=== PATIENT | male | born 1995 | race African-American/Black ===

== ENCOUNTER 2016-10-02 16:07 | Emergency (ER) | payer SELFPAY ==
[2016-10-02 16:30] VITALS: BP 145/88
--- NOTE | 2016-10-02 16:31 | ER Document Report ---
ED Medical Screen (RME) - General Stated Complaint: VOMITING BLOOD,FEVER Mode of Arrival: Ambulatory Information source: Patient Notes: Patient presents to the emergency department with reports of vomiting applied and clumps for the past 3 days. He also reports fever and his body hurting ( "like a fat girl has been sitting on him" I have greeted and performed a rapid initial assessment of this patient. A comprehensive ED assessment and evaluation of the patient, analysis of test results and completion of the medical decision making process will be conducted by additional ED providers. TRAVEL OUTSIDE OF THE [place] IN LAST 30 DAYS: No - Related Data Allergies/Adverse Reactions: Sulfa (Sulfonamide Antibiotics) Allergy (Verified 11/10/11 15:56) Past Medical History Pulmonary Medical History: Reports: Hx Asthma Musculoskeltal Medical History: Reports Hx Musculoskeletal Trauma Skin Medical History: Reports Hx Eczema - Immunizations Immunizations up to date: Yes Hx Diphtheria, Pertussis, Tetanus Vaccination: Yes
[2016-10-02 17:03] LABS: ABSOLUTE MONOCYTES (AUTO) 0.6 10^3/uL (0.1-1.4); ABSOLUTE NEUT (AUTO) 2.9 10^3/uL (1.7-8.2); BASOPHILS % (AUTO) 0.6 % (0-2); EOSINOPHILS % (AUTO) 0.9 % (0-6); HEMATOCRIT 43.2 % (37.9-51.0); HEMOGLOBIN 14.2 g/dL (13.5-17.0); HGB HCT DIFFERENCE -0.6; LYMPHOCYTES % (AUTO) 22.3 % (13-45); MEAN CORPUSCULAR HEMOGLOBIN 31.2 pg (27.0-33.4); MEAN CORPUSCULAR VOLUME 95 fl (80-97); RED BLOOD COUNT 4.57 10^6/uL (4.35-5.55); RED CELL DISTRIBUTION WIDTH 11.7 % (11.5-14.0); SEGMENTED NEUTROPHILS % (AUTO) 63.2 % (42-78); WHITE BLOOD COUNT 4.6 10^3/uL (4.0-10.5)
[2016-10-02 17:22] LABS: APPEARANCE,URINE CLEAR; BILIRUBIN,URINE NEGATIVE (NEGATIVE); GLUCOSE, URINE NEGATIVE (NEGATIVE); KETONES,URINE NEGATIVE (NEGATIVE); LEUKOCYTE ESTERASE,URINE NEGATIVE (NEGATIVE); NITRITE,URINE NEGATIVE (NEGATIVE); PROTEIN,URINE 30 mg/dL (NEGATIVE); URINE SPECIFIC GRAVITY 1.027; UROBILINOGEN,URINE NEGATIVE mg/dL (<2.0)
[2016-10-02 17:25] LABS: ALANINE AMINOTRANSFERASE 26 U/L (21-72); ALBUMIN 4.2 g/dL (3.5-5.0); ALKALINE PHOSPHATASE 56 U/L (38-126); ANION GAP 13 (5-19); ASPARTATE AMINO TRANSFERASE 30 U/L (17-59); BILIRUBIN,DIRECT 0.3 mg/dL (0.0-0.4); BILIRUBIN,TOTAL 0.6 mg/dL (0.2-1.3); BLOOD UREA NITROGEN 13 mg/dL (7-20); CALCIUM 9.9 mg/dL (8.4-10.2); CARBON DIOXIDE 25 mmol/L (22-30); CHLORIDE 110 mmol/L (98-107); CREATININE RESULT 1.05 mg/dL (0.52-1.25); GLUCOSE 102 mg/dL (75-110); POTASSIUM 5.3 mmol/L (3.6-5.0); SODIUM 147.5 mmol/L (137-145)
== END 2016-10-02 20:20 | disposition left against medical advice (07) ==
LOC: ER 16:07
DX: R11.10 Vomiting, unspecified (principal); M79.1 Myalgia; J45.909 Unspecified asthma, uncomplicated; Z88.2 Allergy status to sulfonamides
CPT/HCPCS: 36415; 80053; 81001; 85025; 87804; 99281

== ENCOUNTER 2016-12-23 23:42 | Emergency (ER) | payer SELFPAY ==
--- NOTE | 2016-12-24 02:15 | ER Document Report ---
ED General - General Chief Complaint: R hand injury, R shoulder pain Stated Complaint: FALL/HAND INJURY Time Seen by Provider: 12/24/16 02:01 Notes: Patient is a 21-year-old male presents with complaint of pain of the right hand and shoulder. He is riding his long board and fell. He then worked and then came to the ER after working. He works as a server security administrator. He has no pain with movement of the shoulder hand they does have some road rash on his shoulder and hand. He says the pain is mainly just for the road rashes. No numbness or weakness or tingling into the hand. Pain. No elbow pain. No other complaints at this time. TRAVEL OUTSIDE OF THE [place] IN LAST 30 DAYS: No - Related Data Allergies/Adverse Reactions: Sulfa (Sulfonamide Antibiotics) Allergy (Verified 11/10/11 15:56) Past Medical History - Social History Smoking Status: Never Smoker Frequency of alcohol use: None Drug Abuse: None Family History: DM, Hypertension, Malignancy Pulmonary Medical History: Reports: Hx Asthma Renal/ Medical History: Denies: Hx Peritoneal Dialysis Musculoskeltal Medical History: Reports Hx Musculoskeletal Trauma Skin Medical History: Reports Hx Eczema - Immunizations Immunizations up to date: Yes Hx Diphtheria, Pertussis, Tetanus Vaccination: Yes Review of Systems - Review of Systems Notes: My Normal Review Basic REVIEW OF SYSTEMS: CONSTITUTIONAL : Denies fever, chills, or sweats. Denies recent illness. CARDIOVASCULAR: Denies chest pain. RESPIRATORY: Denies cough, cold, or chest congestion. Denies shortness of breath, difficulty breathing, or wheezing. GASTROINTESTINAL: Denies abdominal pain. Denies nausea, vomiting, or diarrhea. Denies constipation. Last BM: MUSCULOSKELETAL: Some pain in right hand and shoulder. SKIN: road rash on right Hand and shoulder. NEUROLOGICAL: Denies altered mental status or loss of consciousness. Denies headache. Denies weakness or paralysis or loss of use of either side. Denies problems with gait or speech. Denies sensory or motor loss. ALL OTHER SYSTEMS REVIEWED AND NEGATIVE. Physical Exam - Vital signs Vitals: Temp Pulse Resp BP Pulse Ox 97.5 F 72 16 129/74 H 99 12/24/16 00:15 12/24/16 00:15 12/24/16 00:15 12/24/16 00:15 12/24/16 00:15 - Notes Notes: General Appearance: Well nourished, alert, cooperative, no acute distress, no obvious discomfort. Well appearing. Vitals: reviewed, See vital signs table. Head: no swelling or tenderness to the head Eyes: PERRL, EOMI, Conjuctiva clear Extremities: strength 5/5 in all extremities, good pulses in all extremities, no reproducible tenderness to palpation of the right hand or wrist. Patient has very small amount tenderness to palpation only over the area of road rash. He denies any pain to the inside of his shoulder. He says the pain is only on the surface for the red rashes. He has full range of motion of the right shoulder without pain. Skin: Very small amount of road rash on the dorsum of the right hand as well as one spot of road rash on the right shoulder. Neuro: speech clear, oriented x 3, normal affect, responds appropriately to questions. - General General appearance: Appears well, Alert Course - Vital Signs Vital signs: Temp Pulse Resp BP Pulse Ox 97.5 F 66 16 116/68 100 12/24/16 00:15 12/24/16 03:39 12/24/16 03:39 12/24/16 03:39 12/24/16 03:39 - Transfer of Care Notes: 12/24/16 07:24 X-ray the patient has negative for fracture. He does have some road rash. I encouraged him to keep the wounds clean. If he has any redness or swelling to the area she is to return to the ER for reevaluation. Patient agrees with plan and will be discharged home. Dictation of this chart was performed using voice recognition software; therefore, there may be some unintended grammatical errors. Discharge - Discharge Clinical Impression: Abrasion Condition: Good Disposition: HOME, SELF-CARE Additional Instructions: Please return to the ER if you have redness or increasing swelling to your hand or shoulder as this may indicate an infection. Keep road rash clean with soap and water.
--- NOTE | 2016-12-24 02:16 | RADIOLOGY REPORT (SQ) ---
EXAM DESCRIPTION: HAND RIGHT 3 VIEWS COMPLETED DATE/TIME: 12/24/2016 2:07 am REASON FOR STUDY: pain s/p injury COMPARISON: None. 03/08/2009. EXAM PARAMETERS: NUMBER OF VIEWS: Three views. TECHNIQUE: AP, lateral and oblique radiographic images acquired of the right hand. LIMITATIONS: None. FINDINGS: MINERALIZATION: Normal. BONES: No acute fracture or dislocation. No worrisome bone lesions. Mild deformity of the right 5th metacarpus consistent with prior injury. JOINTS: No effusions. SOFT TISSUES: Known soft tissue laceration of the right 4th digit. No foreign body. OTHER: No other significant finding. IMPRESSION: No acute bone or joint defect. TECHNICAL DOCUMENTATION: JOB ID: [id number] [employer]- All Rights Reserved
[2016-12-24] MEDS ORDERED: DIPH/PERTUSS(ACELL)/TETANUS VAC/PF 0.5 ML SYR (>=10YO) IM ONE (03:27)
[2016-12-24 03:52] VITALS: BP 116/68
== END 2016-12-24 03:39 | disposition home or self-care (01) ==
LOC: ER 23:42
DX: S60.511A Abrasion of right hand, initial encounter (principal); S40.211A Abrasion of right shoulder, initial encounter; M79.641 Pain in right hand; M25.511 Pain in right shoulder; V00.131A Fall from skateboard, initial encounter; Y93.51 Activity, roller skating (inline) and skateboarding; J45.909 Unspecified asthma, uncomplicated; Z88.2 Allergy status to sulfonamides
CPT/HCPCS: 90471; 90715; 99283

== ENCOUNTER 2017-01-02 15:13 | Emergency (ER) | payer SELFPAY ==
[2017-01-02] MEDS ORDERED: PREDNISONE 20 MG TABLET PO ONE (16:10)
--- NOTE | 2017-01-02 16:14 | ER Document Report ---
HPI - HPI Patient complains to provider of: skin rash Onset: Other - 4 days Onset/Duration: Persistent Quality of pain: Burning Pain Level: 2 Context: Patient complains of pruritic skin rash to the right shoulder and behind his left ear for the past 4 days. Patient does state that he has been using a topical triple antibiotic cream to his shoulder after an abrasion. Patient states that he does have a sulfa allergy. Patient denies any other new foods, medications or detergents. Without any difficulty breathing, chest pain or fever. Associated Symptoms: Other - Skin rash Exacerbated by: Denies Relieved by: Denies Similar symptoms previously: No Recently seen / treated by doctor: Yes - ROS ROS below otherwise negative: Yes Systems Reviewed and Negative: Yes All other systems reviewed and negative - CONSTITUTIONAL Constitutional: DENIES: Fever - CARDIOVASCULAR Cardiovascular: DENIES: Chest pain - RESPIRATORY Respiratory: DENIES: Trouble Breathing, Coughing - GASTROINTESTINAL Gastrointestinal: DENIES: Nausea, Patient vomiting - REPRODUCTIVE Reproductive: DENIES: : - DERM Skin Color: Normal Skin Problems: Rash Past Medical History - General Information source: Patient - Social History Smoking Status: Never Smoker Occupation: food supervisor Family History: DM, Hypertension, Malignancy Patient has suicidal ideation: No Patient has homicidal ideation: No Pulmonary Medical History: Reports: Hx Asthma Renal/ Medical History: Denies: Hx Peritoneal Dialysis Musculoskeltal Medical History: Reports Hx Musculoskeletal Trauma Skin Medical History: Reports Hx Eczema Surgical Hx: Negative - Immunizations Immunizations up to date: Yes Hx Diphtheria, Pertussis, Tetanus Vaccination: Yes Vertical Provider Document - CONSTITUTIONAL Agree With Documented VS: Yes Exam Limitations: No Limitations General Appearance: WD/WN, No Apparent Distress - INFECTION CONTROL TRAVEL OUTSIDE OF THE [place] IN LAST 30 DAYS: No - HEENT HEENT: Atraumatic, Normal ENT Exam, Normocephalic - NECK Neck: Normal Inspection, Supple - RESPIRATORY Respiratory: Breath Sounds Normal, No Respiratory Distress, Chest Non-Tender O2 Sat by Pulse Oximetry: 100 - CARDIOVASCULAR Cardiovascular: Regular Rate, Regular Rhythm, No Murmur - MUSCULOSKELETAL/EXTREMETIES Musculoskeletal/Extremeties: MAEW - NEURO Level of Consciousness: Awake, Alert, Appropriate Motor/Sensory: No Motor Deficit - DERM Integumentary: Warm, Dry, Rash - Erythematous papular rash concentrated to right shoulder and left post auricular area. Patient with scattered lesions to anterior chest and upper back area. Course - Re-evaluation Re-evalutation: 01/02/17 16:11 That patient is likely having a reaction after continued use of topical antibiotic cream. Patient's right shoulder injury appears almost completely healed and patient advised that he can discontinue use of the topical antibiotic and should not use in the future. Patient instructed to wash the skin off and is given a paper shirt here to wear home. - Vital Signs Vital signs: Temp Pulse Resp BP Pulse Ox 98.8 F 16 126/69 H 100 01/02/17 15:27 01/02/17 15:27 01/02/17 15:27 01/02/17 15:27 Discharge - Discharge Clinical Impression: Dermatitis Condition: Stable Disposition: HOME, SELF-CARE Instructions: Contact Dermatitis ([facility]), Steroid Medication, Use of Diphenhydramine Additional Instructions: Return immediately for any new or worsening symptoms Followup with your primary care provider, call tomorrow to make a followup appointment avoid use of triple antibiotic cream in the future Prescriptions: Prednisone [Deltasone 20 mg Tablet] 3 tab PO DAILY 4 Days Forms: Return to Work Referrals: [facility] [Provider Group] - Follow up as needed
[2017-01-02 17:01] VITALS: BP 127/68
== END 2017-01-02 16:42 | disposition home or self-care (01) ==
LOC: ER 15:13
DX: L30.9 Dermatitis, unspecified (principal); J45.909 Unspecified asthma, uncomplicated; Z88.2 Allergy status to sulfonamides
CPT/HCPCS: 99282; J7512